=== PATIENT | male | born 1950 | race Caucasian/White ===

== ENCOUNTER → 2024-06-20 | Day surgery (SDC) | payer OTHER ==
[~2024-06-20] VITALS: Wt 83.9 kg
[~2024-06-20] MED LIST: ALOGLIPTIN12.5 MG PO; ATROPINE SULFATE 1% 2 ML BOTTLE ONE; ATROPINE SULFATE 1% 2 ML BOTTLE OPH SCH; BENZONATATE100 M1 PO; Balanced Salt Solution 500 ML OPH SCH; Cyclopentolate Hydrochloride 1% 2 ML BOTTLE OPH SCH; Dexamethasone/Tobramycin OPHTHALMIC 2.5 ML BOTTLE ONE; ELIQUIS5 M1 PO; GLIPIZIDE10 M2 PO; IMDUR SA30 MG PO; LASIX20 MG PO; LOPRESSOR25 MG PO; Midazolam Hydrochloride 2 MG/2 ML VIAL IV ONE; NEURONTIN300 MG PO; OFLOXACIN 0.3% 5 ML BOTTLE ONE; PEPCID20 MG PO; PHENYLEPHRINE/KETOROLAC 4 ML in Balanced Salt Solution 500 ML OPH SCH; PLAVIX75 M1 PO; POVIDONE IODINE 5% OPHTHALMIC 30 ML BOTTLE OPH SCH; PRAVASTATIN SOD80 MG PO; PRAZOSIN HCL2 MG PO; PROPAFENONE HC150 MG PO; Phenylephrine Hydrochloride 2 ML BOT OPH ONE; Phenylephrine Hydrochloride 2 ML BOT OPH SCH; Proparacaine Hydrochloride 15 ML BOT OPH ONE; Proparacaine Hydrochloride 15 ML BOT OPH SCH; SERTRALINE HYDR50 MG PO; SODIUM CHLORIDE 0.9% 1,000 ML IV SCH; TERBINAFINE15 GM T; TOBRAMYCIN 2.5 ML BOT OPH SCH; TROPICAMIDE 3 ML BOT OPH ONE; TROPICAMIDE 3 ML BOT OPH SCH; TYLENOL EXTRA500 MG PO; Tetracaine Hydrochloride 0.5% 4 ML BOT OPH ONE; Tetracaine Hydrochloride 0.5% 4 ML BOT OPH SCH; VITAMIN D350 MCG PO; XOPENEX HFA15 GM INH; prednisoLONE acetate 1% OPHTHALMIC 5 ML BOT OPH ONE; prednisoLONE acetate 1% OPHTHALMIC 5 ML BOT OPH SCH
[2024-06-20 11:15] VITALS: BP 130/56
[2024-06-20 13:49] VITALS: BP 132/92
[2024-06-20 13:54] VITALS: BP 140/104
[2024-06-20 14:09] VITALS: BP 137/73
== END | disposition home or self-care (01) ==
LOC: SDC 06-18 10:15
PROVIDERS: ATTEND Ophthalmology
DX: E11.36 Type 2 diabetes mellitus with diabetic cataract (principal); H25.812 Combined forms of age-related cataract, left eye; I10 Essential (primary) hypertension; I25.10 Atherosclerotic heart disease of native coronary artery without angina pectoris; K21.9 Gastro-esophageal reflux disease without esophagitis; F41.9 Anxiety disorder, unspecified; J44.9 Chronic obstructive pulmonary disease, unspecified; Z95.1 Presence of aortocoronary bypass graft; Z87.891 Personal history of nicotine dependence; Z91.041 Radiographic dye allergy status; Z98.890 Other specified postprocedural states; Z79.899 Other long term (current) drug therapy; Z88.1 Allergy status to other antibiotic agents; Z88.8 Allergy status to other drugs, medicaments and biological substances

== ENCOUNTER → 2024-07-25 | Day surgery (SDC) | payer OTHER ==
[~2024-07-25] VITALS: Ht 172.7 cm; Wt 83.9 kg
[~2024-07-25] MED LIST changes: -ATROPINE SULFATE 1% 2 ML BOTTLE ONE; -ATROPINE SULFATE 1% 2 ML BOTTLE OPH SCH; +BALANCED SALT IRRIG SOLN NO.2 1.13 ML,Lidocaine Hydrochloride 0.37 ML,EPINEPHrine Hydro... IV SCH; -Cyclopentolate Hydrochloride 1% 2 ML BOTTLE OPH SCH; -Dexamethasone/Tobramycin OPHTHALMIC 2.5 ML BOTTLE ONE; +POVIDONE IODINE 5% OPHTHALMIC 30 ML BOTTLE OPH ONE; +prednisoLONE acetate 1% OPHTHALMIC 5 ML BOT ONE; -prednisoLONE acetate 1% OPHTHALMIC 5 ML BOT OPH ONE
[2024-07-25 11:08] VITALS: BP 159/91
[2024-07-25 13:10] VITALS: BP 119/59
[2024-07-25 13:25] VITALS: BP 135/98
[2024-07-25 13:34] VITALS: BP 103/70
== END | disposition home or self-care (01) ==
LOC: SDC 07-23 09:30
PROVIDERS: ATTEND Ophthalmology
DX: E11.36 Type 2 diabetes mellitus with diabetic cataract (principal); H25.11 Age-related nuclear cataract, right eye; I12.9 Hypertensive chronic kidney disease with stage 1 through stage 4 chronic kidney disease, or unspecified chronic kidney disease; N18.9 Chronic kidney disease, unspecified; E11.9 Type 2 diabetes mellitus without complications; I25.10 Atherosclerotic heart disease of native coronary artery without angina pectoris; J44.9 Chronic obstructive pulmonary disease, unspecified; K21.9 Gastro-esophageal reflux disease without esophagitis; I48.91 Unspecified atrial fibrillation; F41.9 Anxiety disorder, unspecified; F32.A Depression, unspecified; Z87.891 Personal history of nicotine dependence; Z95.5 Presence of coronary angioplasty implant and graft; Z98.890 Other specified postprocedural states; Z79.899 Other long term (current) drug therapy; Z91.041 Radiographic dye allergy status; Z88.1 Allergy status to other antibiotic agents; Z88.8 Allergy status to other drugs, medicaments and biological substances